=== PATIENT | male | born 1955 | race Caucasian/White ===

== ENCOUNTER 2018-07-17 02:53 | Outpatient (CLI) | payer MEDICAID, SELFPAY ==
[2018-07-17 13:14] LABS: BUN 16 mg/dL (7-18); CREATININE 1.52 mg/dL (0.70-1.30); Estimated GFR 46.86 (mL/min/1.73m2)
[2018-07-17] MEDS: Omnipaque 350 MG/ML 100 ML BTL IJ (13:51)
--- NOTE | 2018-07-17 14:03 | DI.RPTCT_ITS ---
SYMPTOMS/DIAGNOSIS: PHARYNX NEOPLASM, D49.[address]: CT examination of the cervical region was performed with a bolus infusion of 50 cc's of Omnipaque 350. Images obtained through the lung apices show emphysematous changes and no focal mass. No superior mediastinal adenopathy seen. There are scattered unremarkable appearing lymph nodes throughout the cervical region, the largest jugulodigastric node on the right measuring about 11 mm in diameter. No radhika masses identified. 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 The laryngeal structures are unremarkable. There is apparent chronic sinus disease predominantly involving ethmoid sinuses bilaterally with some mild mucoperiosteal thickening of the maxillary sinuses bilaterally as well. The mastoid air cells are clear and temporal bone structures appear intact. The visualized portions of the brain are unremarkable. CONCLUSION: No gross evidence of cervical adenopathy in a patient with reported pharyngeal neoplastic disease.
== END 2018-07-17 02:54 ==
PROVIDERS: PCP Family Medicine; Visit Provider Otolaryngology Otolaryngology/Facial Plastic Surgery
DX: D49.0 Neoplasm of unspecified behavior of digestive system (principal); R59.0 Localized enlarged lymph nodes
CPT/HCPCS: 70491; 84520; 82565; J3490

== ENCOUNTER 2018-11-09 08:52 | Outpatient (CLI) | payer MEDICAID, SELFPAY ==
[2018-11-09 11:14] LABS: Bilirubin Negative (Negative); Blood Trace-intact (Negative); Clarity Clear; Glucose Negative (Negative); Ketones Negative (Negative); Leukocyte Esterase Negative (Negative); Nitrite Negative (Negative); Urobilinogen 0.2 EU/dL (Up TO 0.2)
[2018-11-09 11:30] LABS: Bacteria Rare HPF (Negative); C & S Indicated? No; Casts Negative LPF (Negative); Crystals Negative HPF (Negative); Epithelial Cells Rare HPF (Negative); Mucus Negative (Negative); RBC 0-2 (0-2); WBC Negative HPF (0-5)
[2018-11-09 11:34] LABS: Anion Gap 13.9 mmol/L (3-11); BUN 31 mg/dL (7-18); CO2 23.1 mmol/L (21.0-32.0); CREATININE 1.67 mg/dL (0.70-1.30); Calcium 9.9 mg/dL (8.5-10.1); Chloride 102 mmol/L (98-107); Glucose 91 mg/dL (70-100); Potassium 4.9 mmol/L (3.5-5.1); Sodium 139 mmol/L (136-145)
== END 2018-11-09 09:12 ==
PROVIDERS: PCP Family Medicine; Visit Provider Family Medicine
DX: E87.5 Hyperkalemia (principal); R39.11 Hesitancy of micturition; I10 Essential (primary) hypertension
CPT/HCPCS: 36415; 80048; 81003; 81015

== ENCOUNTER 2019-05-04 10:09 | Outpatient (CLI) | payer MEDICAID, SELFPAY ==
[2019-05-04 13:13] LABS: ALT 23 U/L (12-78); AST 20 U/L (15-37); Alkaline Phosphatase 99 U/L (46-116); Anion Gap 11.5 mmol/L (3-11); BUN 18 mg/dL (7-18); Bilirubin, Total 0.3 mg/dL (0.2-1.0); CO2 24.5 mmol/L (21.0-32.0); CREATININE 1.46 mg/dL (0.70-1.30); Calcium 9.4 mg/dL (8.5-10.1); Chloride 102 mmol/L (98-107); Estimated GFR 48.92 (mL/min/1.73m2); Glucose 93 mg/dL (70-100); Potassium 4.9 mmol/L (3.5-5.1); Sodium 138 mmol/L (136-145); Total Protein 6.9 g/dL (6.4-8.2)
== END 2019-05-04 10:29 ==
PROVIDERS: PCP Family Medicine; Visit Provider Family Medicine
DX: R25.2 Cramp and spasm (principal); Z80.42 Family history of malignant neoplasm of prostate; Z12.5 Encounter for screening for malignant neoplasm of prostate
CPT/HCPCS: 36415; 80053; 84153; 83735

== ENCOUNTER 2019-09-16 09:35 | Outpatient (CLI) | payer MEDICAID, SELFPAY ==
--- NOTE | 2019-09-16 09:31 | DI.RAD_ITS ---
EXAM: XR KNEE LT 3V AP,LAT,EVELYN CLINICAL HISTORY: OA LEFT KNEE TECHNIQUE: The exam was performed according to the usual protocol. COMPARISON: LEFT KNEE 3 VIEW COMPLETE from 03/16/2014 FINDINGS: Three views were obtained. There is narrowing of the cartilaginous joint space of the lateral tibiof emoral joint which can be characterized as moderate to severe. Mild narrowing of medial tibiofemoral joint and patellofemoral joint also noted. Subchondral sclerosis and cyst formation noted at all 3 joints of the knee. Moderate hypertrophic marginal osteophyte formation noted as well. IMPRESSION: Severe DJD of the knee most marked involving lateral tibiofemoral joint.
== END 2019-09-16 09:55 ==
PROVIDERS: PCP Family Medicine; Visit Provider Student in an Organized Health Care Education/Training Program
DX: M25.562 Pain in left knee (principal); M17.12 Unilateral primary osteoarthritis, left knee
CPT/HCPCS: 73562

== ENCOUNTER 2020-05-19 09:14 | Outpatient (CLI) | payer MEDICAID, SELFPAY ==
[2020-05-19 23:32] LABS: COVID-19 RT-PCR UVMMC Result Negative (Negative)
== END 2020-05-19 09:34 ==
PROVIDERS: PCP Family Medicine; Visit Provider Family Medicine
DX: Z11.59 Encounter for screening for other viral diseases (principal)
CPT/HCPCS: U0003

== ENCOUNTER 2020-05-22 04:16 | Outpatient (CLI) | payer MEDICAID, SELFPAY ==
--- NOTE | 2020-05-29 08:37 | W.PFT ---
Date of service: 05/22/20 Time of Service: 08:04 Pulmonary Function Test Result Interpretation Spirometry: Spirometry shows mild obstructive airways disease, no significant bronchodilator response Lung Volumes: Not done Diffusion Capacity: Not done Airway Pressure: Not done Impression Mild obstructive airways disease with no bronchodilator response on spirometry. Clinical correlation recommended Clinical Correlation therefore is recommended.
== END 2020-05-22 04:36 ==
PROVIDERS: PCP Family Medicine; Visit Provider Family Medicine
DX: R06.02 Shortness of breath (principal); J44.9 Chronic obstructive pulmonary disease, unspecified
CPT/HCPCS: 94060

== ENCOUNTER 2020-05-30 00:50 | Outpatient (CLI) | payer MEDICAID, SELFPAY ==
[2020-05-30 07:55] LABS: HCT 51.1 % (40.0-50.0); Mean Corp. HGB Concentration 33.3 g/dL (32.0-36.0); Mean Corpuscular Hemoglobin 30.4 pg (27.0-33.0); Mean Corpuscular Volume 91.3 fL (80-95); Platelet Count 305 x1000/uL (130-400); RBC Distribution Width 13.6 % (11.8-14.1); White Blood Cell Count 10.36 k/cumm (4.4-10.8)
[2020-05-30 07:56] LABS: Bilirubin Negative (Negative); Blood Trace-intact (Negative); Clarity Clear (Clear); Glucose Negative (Negative); Ketones Negative (Negative); Leukocyte Esterase Negative (Negative); Nitrite Negative (Negative); Specific Gravity 1.025 (1.005-1.025); Urobilinogen 0.2 EU/dL (Up TO 0.2); pH 6.5 (5-8)
--- NOTE | 2020-05-30 07:56 | DI.RAD_ITS ---
EXAM: XR CHEST 2V PA LATERAL CLINICAL HISTORY: copd/sob, chronic obstructive pulmonary disease, J44.9, R06.02 TECHNIQUE: 2D digital imaging was performed. COMPARISON: No exams were available for comparison FINDINGS: MEDIASTINUM: Normal. HEART: Normal. PULMONARY VASCULATURE: Normal. LUNGS: There are patchy bilateral infiltrates in the upper lobes, right greater than left. There mil d underlying changes of COPD. PLEURAL SPACE: No pleural effusion or pneumothorax. BONE:Normal. IMPRESSION: Bilateral upper lobe infiltrate, right greater than left. DATA REPOSITORY: RADIATION DOSE DELIVERED:
[2020-05-30 08:22] LABS: Bacteria Rare HPF (Negative); C & S Indicated? No; Casts 0-2 Hyaline LPF (Negative); Crystals Negative HPF (Negative); Epithelial Cells Few HPF (Negative); Mucus Trace (Negative); WBC 0-2 HPF (0-5)
[2020-05-30 08:28] LABS: ALT 19 U/L (16-63); AST 19 U/L (15-37); Albumin 4.1 g/dL (3.4-5.0); Alkaline Phosphatase 107 U/L (46-116); Anion Gap 11.5 mmol/L (3-11); BUN 21 mg/dL (7-18); Bilirubin, Total 0.4 mg/dL (0.2-1.0); CO2 25.5 mmol/L (21.0-32.0); CREATININE 1.55 mg/dL (0.70-1.30); Calcium 9.4 mg/dL (8.5-10.1); Calculated LDL 105 mg/dL (<100); Chloride 103 mmol/L (98-107); Cholesterol 172 mg/dL (<200); Estimated GFR 45.51 (mL/min/1.73m2); Glucose 107 mg/dL (74-106); HDL Cholesterol 50 mg/dL (40-60); Potassium 5.1 mmol/L (3.5-5.1); Sodium 140 mmol/L (136-145); Total Protein 7.4 g/dL (6.4-8.2); Triglyceride 85 mg/dL (<150)
[2020-05-30 08:43] LABS: Uric Acid 6.4 mg/dL (3.5-7.2)
[2020-05-31 08:38] LABS: PSA, Screening 1.3 ng/mL (0.0-4.5)
== END 2020-05-30 01:10 ==
PROVIDERS: PCP Family Medicine; Visit Provider Family Medicine
DX: J44.9 Chronic obstructive pulmonary disease, unspecified (principal); R06.02 Shortness of breath; R91.8 Other nonspecific abnormal finding of lung field; E78.5 Hyperlipidemia, unspecified; N18.9 Chronic kidney disease, unspecified; R39.11 Hesitancy of micturition; Z12.5 Encounter for screening for malignant neoplasm of prostate; Z80.42 Family history of malignant neoplasm of prostate
CPT/HCPCS: 36415; 80053; 80061; 84153; 85027; 71046; 81003; 81015; 84550

== ENCOUNTER 2020-06-05 00:47 | Outpatient (CLI) | payer MEDICAID, SELFPAY ==
--- NOTE | 2020-06-05 08:15 | DI.CT_ITS ---
EXAM: CT CHEST W CLINICAL HISTORY: Bilateral upper lobe infiltrates R91.8 ABNORMAL FINDINGS, J44.9 COPD, TECHNIQUE: Imaging Protocol: Axial computed tomography images with coronal and sagittal reformatted images were created and reviewed CONTRAST MATERIAL: Intravenous: Omnipaque 350 Contrast volume:70 mL. COMPARISON: CR CHEST 2 VIEWS PA,LAT from 04/29/2018 CR XR CHEST 2V PA LATERAL from 05/30/2020 FINDINGS: Tracheobronchial tree: Patent where visualized. Mediastinum and Sanam: No dominant adenopathy or fluid collection. Pulmonary parenchyma: Moderately severe centrilobular emphysematous changes are present. Numerous no ncalcified pulmonary nodules are now seen scattered throughout the lungs. The largest measures appro ximately 1.1 cm in size. These were not present on the CT scan of the neck from 07/17/2018. No focal consolidating infiltrates are seen. Dependent atelectatic changes are seen in the lung bases. Pleura: No effusion or pneumothorax. Heart: The heart is not dilated. Mild coronary artery calcification is present. No significant peric ardial effusion. Aorta: Thoracic aorta non-dilated. Upper abdomen: Multiple bilateral renal cysts. Lymph nodes: Within normal limits. Bones: Degenerative changes are seen in the spine. No aggressive osseous lesions are identified. IMPRESSION: 1. Multiple pulmonary nodules. Primary diagnostic concern is for metastatic disease. An inflammator y infectious process cannot be excluded. 2. Moderately severe centrilobular emphysema. 3. Mild coronary artery disease. 4. Multiple bilateral renal cysts. RADIATION DOSE DELIVERED: Total DLP DATA REPOSITORY: All CT scans at this facility are submitted to the National Radiology Data Registry (NRDR) Dose Index Registry (DIR) with the [employer] (ACR). RADIATION OPTIMIZATION: All CT scans at this facility use at least one of these dose optimization te chniques: automated exposure control; mA and/or kV adjustment per patient size (includes targeted exa ms where dose is matched to clinical indication); or iterative reconstruction.
[2020-06-05] MEDS: Normal Saline - Diluent 50 ML VIAL IV (09:01)
[2020-06-05] MEDS: Omnipaque 350 MG/ML 100 ML BTL 70 ML IJ (09:02)
[2020-06-05] MEDS: Normal Saline Flush 10 ML SYR IVP (09:03)
== END 2020-06-05 01:07 ==
PROVIDERS: PCP Family Medicine; Visit Provider Family Medicine
DX: R91.8 Other nonspecific abnormal finding of lung field (principal); J43.8 Other emphysema; N28.1 Cyst of kidney, acquired; I25.10 Atherosclerotic heart disease of native coronary artery without angina pectoris
CPT/HCPCS: 71260; J3490

== ENCOUNTER 2020-06-27 00:25 | Outpatient (CLI) | payer MEDICAID, SELFPAY ==
--- NOTE | 2020-06-27 | DI.CT_ITS ---
EXAM: CT ABDOMEN PELVIS W CLINICAL HISTORY: PRIMARY LUNG NODULES,R91.8,METASTATIC MALIGNANCY SUSPECTED TECHNIQUE: COMPARISON: No exams were available for comparison FINDINGS: CT examination of the abdomen and pelvis was performed utilizing biphasic scanning following injectio n of 100 cc of Omnipaque 350. Images obtained through the lung bases show central lobular emphysema. No pleural effusion. The liver and spleen appear normal. The pancreas appears. No biliary dilatation. Gallbladder is CT normal. Adrenals appear normal bilaterally with no evidence of an adrenal mass. There are numerous bilateral low attenuation renal masses consistent with multiple renal cysts. Abdominal aorta is of normal diameter and no major abnormality of major visceral branches is seen. There is a small fat containing right inguinal hernia. There is a small fat containing umbilical her radha. No abdominal or pelvic adenopathy. Appendix is normal. No evidence of diverticulitis or bowel obstruction. IMPRESSION: Negative abdominal pelvic CT. No evidence intra-abdominal metastatic disease.
[2020-06-27] MEDS: Omnipaque 350 MG/ML 50 ML BTL PO (08:28)
[2020-06-27] MEDS: Normal Saline - Diluent 50 ML VIAL IV (10:25)
[2020-06-27] MEDS: Omnipaque 350 MG/ML 100 ML BTL IJ (10:25)
[2020-06-27] MEDS: Breeza Beverage 473 ML BTL PO (10:27)
== END 2020-06-27 00:45 ==
PROVIDERS: PCP Family Medicine; Visit Provider Student in an Organized Health Care Education/Training Program
DX: R91.8 Other nonspecific abnormal finding of lung field (principal); J43.9 Emphysema, unspecified; N28.89 Other specified disorders of kidney and ureter
CPT/HCPCS: 74177; J3490; Q9967

== ENCOUNTER 2021-03-08 09:18 | Inpatient (IN) | payer MEDICAID, SELFPAY ==
[2021-03-08] VITALS (12 sets, daily range): BP systolic 121–147; BP diastolic 76–91; PULSE 86–120; RESP 12–18; TEMP 36.6–37.4; O2SAT 90–96
--- NOTE | 2021-03-08 09:45 | DI.US_ITS ---
EXAM: US LOWER EXTREMITY VENOUS LT CLINICAL HISTORY: swelling and pain entire left leg TECHNIQUE: Grayscale, color, and doppler imaging of the deep venous system of the left lower extremi ty was performed. COMPARISON: No exams were available for comparison FINDINGS: This is an abnormal-positive study. There is extensive DVT extending from at least the common femoral vein down through the length of the ipsilateral femoral vein and into the calf veins including the peroneal veins and visualized proxima l anterior tibial veins. The visualized posterior tibial veins appear patent. There is also thrombus within the proximal and mid portions of the ipsilateral greater saphenous vein . IMPRESSION: 1. Positive study with extensive DVT in the left lower extremity, as described above.. There is als o extensive thrombosis in the ipsilateral greater saphenous vein. DATA REPOSITORY:
--- NOTE | 2021-03-08 09:45 | RT.EKG_ITS ---
APPROVED REPORT Exam: Resting ECG Patient Location: E HR:89 bpm ECG Measurements Heart Rate 89 AXIS CO 133 P 68 QRSd 111 QRS 67 QT 363 T -11 QTc 443 Conclusion Sinus rhythm.. Repol abnrm inferior leads...ST dep, T neg, II III aVF are similar to previous 03/01/14
--- NOTE | 2021-03-08 09:55 | W.ED.GENAD ---
Discharge Plan Discharge Details Chief Complaint: Cellulitis Admit Date/Time: 03/08/21 12:20 Admit Provider: Bere Beltre Attending Provider: Bere Beltre Primary Care Provider: Kalen Morrissey ED Provider: Shelby Valentino Discharge Data Discharge Date/Time-TO BE ENTERED AT DEPARTURE: 03/08/21 13:31 Medical Decision Making States she shows common femoral DVT, ultrasound done today of DVT throughout femoral and saphenous vein Recommendation for admission for Lovenox administration CT chest does not show pulmonary embolism per radiology interpretation but does show evidence of a infiltrate, given patient, I did initiate ceftriaxone and cyclin Patient is afebrile, he is in no acute respiratory distress There is no evidence of abdominal pathology on CT scan which is reassuring Patient will be admitted by the hospitalist service at this time Covid swab pending Case discussed with Dr. Beltre, she is willing to admit the patient EKG does not show acute pathology when compared to prior Differential Diagnosis Differential Diagnosis: DVT, pulmonary embolism, angina, cellulitis Medical Records Medical records reviewed: Yes I reviewed the patient's medical records. Lab Data Lab results reviewed: Yes I reviewed the patient's lab results. ECG Data Prior ECG tracings: available for review HPI 65-year-old male presents with report of left leg swelling which started 3 days prior to arrival. Patient denies any chest pain or shortness of breath. He denies fever or chills. He states the leg is painful. He denies prior history of similar symptoms in the past. He denies exacerbating or alleviating factors. Has a possible history of cancer which he has elected not work-up at this point. He was told he potentially had lung cancer. He denies any nausea or vomiting but has had left lower quadrant cramping which is intermittent in nature. Patient states lately when he bends over or positions manner that applies pressure to the area. He denies any urinary complaints. He denies any diarrhea. He denies any chest pain or shortness of breath at this time General Date/Time Provider Initiated Documentation: 03/08/21 09:18. Related Data Home Medications Medication Instructions Recorded Confirmed acetaminophen [Tylenol Extra 500 mg PO TID PRN 03/28/14 03/08/21 Strength] garlic 500 mg PO BID 05/13/14 04/15/21 lisinopril 20 1 tab PO DAILY #90 tab 11/09/18 03/08/21 mg-hydrochlorothiazide 12.5 mg tablet budesonide-formoterol HFA 160 2 puff INHALATION BID 30 Days #1 08/31/20 03/08/21 mcg-4.5 mcg/actuation aerosol inhaler inhaler albuterol sulfate 90 mcg/actuation 1 - 2 puff INHALATION Q4H PRN 30 11/12/20 03/08/21 aerosol inhaler Days #2 inhaler Previous Rx's Medication Instructions Recorded lisinopril 20 1 tab PO DAILY #90 tab 11/09/18 mg-hydrochlorothiazide 12.5 mg tablet budesonide-formoterol HFA 160 2 puff INHALATION BID 30 Days #1 08/31/20 mcg-4.5 mcg/actuation aerosol inhaler inhaler albuterol sulfate 90 mcg/actuation 1 - 2 puff INHALATION Q4H PRN 30 11/12/20 aerosol inhaler Days #2 inhaler Allergies Allergy/AdvReac Type Severity Reaction Status Date / Time meloxicam Allergy Intermediate Skin Rash Unverified 03/08/21 09:27 oxycodone AdvReac Severe Contraindic Unverified 03/08/21 09:27 ated General Stated Complaint: Cellulitis IRMA: 3 Review of Systems Narrative: Review of systems obtained times 7 aside from where indicated in HPi COUNTS INCLUDE 234 BEDS AT THE [facility] Surgical History Cystoscopy 10/12/14 Hand surgery 04/2014 Replacement of total knee joint 04/10/17 RIGHT KNEE Family History (Updated 05/16/20 @ 11:05 by Magdi Saunders) Mother , 67 Diabetes Heart disease Myocardial infarction Parkinson disease Father , 89 Heart disease Myocardial infarction x 2 OA (osteoarthritis) Dialysis patient Son No problems noted. Family History Essential hypertension Heart disease Hyperlipidemia Mental disorder Sister No problems noted. Sister No problems noted. Sister No problems noted. Sister No problems noted. Brother , 63 No problems noted. Brother No problems noted. Son No problems noted. Social History (Updated 05/16/20 @ 11:04 by Magdi Saunders) Smoking/Tobacco Use Status: Current every day Tobacco Type: cigarettes Quit status: considering quitting Smoking risk assessment performed?: Yes Alcohol Intake: current Alcohol Intake frequency: 0-2 drinks per day Alcohol type: beer Drug use: Socially Substance use type: marijuana Caregiver/Support person: No Household members: none Housing: other Details: [place]per Do you need help understanding health information?: Rarely Pets and animals: No Sexually active: Yes Do you think of yourself as: straight/heterosexual Current gender identity: male What is your relationship status?: How often do you talk on the phone with friends or family?: decline to answer How often do you get together with friends or relatives?: decline to answer How often do you attend mosque or holiness services?: decline to answer Do you belong to any clubs or organized social groups?: decline to answer Panel score (0-1 are the most socially isolated patients): 0 What type of physical activity do you participate in: decline to answer Duration: 30-45 minutes/day Frequency: decline to answer Mehnaz/Latter Day: Confucianist Special mehnaz needs: No Seatbelt use: always Drive 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 Do you feel safe at home: Yes Do you feel safe in your relationship?: Yes Exam Const General: cooperative and comfortable HENMT Head: normal to inspection Eyes Pupils: PERRL Chest Chest: normal inspection of the chest Resp Effort & Inspection: normal respiratory effort Auscultation: clear to auscultation bilaterally Cardio Rate: tachycardic GI Other: Left lower quadrant tenderness, no rebound or guarding, no CVA tenderness Neuro General: patient alert and patient oriented x3 Extrem Other: Left lower extremity with significant swelling, distal pulses intact, sensation intact Course Vital Signs Vital signs: Vital Signs Temperature 36.6 C 03/08/21 09:21 Pulse 120 H 03/08/21 09:21 Blood Pressure 142/76 H 03/08/21 09:21 Pulse Oximetry 96 03/08/21 09:21 Temperature 36.6 C 03/08/21 09:21 Temperature Source Temporal Artery Scan 03/08/21 09:21 Pulse 120 H 03/08/21 09:21 Respiratory Effort Non-Labored 03/08/21 09:26 Blood Pressure 142/76 H 03/08/21 09:21 Blood Pressure Position Sitting 03/08/21 09:21 Pulse Oximetry 96 03/08/21 09:21 Oxygen Delivery Method Room Air 03/08/21 09:21 Oxygen Flow Rate 0 03/08/21 09:21 Pain Level 2 03/08/21 09:21
[2021-03-08 09:56] LABS: Abs Immature Grans 0.08 10^3/uL (0.0-0.06); Absolute Basophil Count 0.12 10^3/uL (0.0-0.2); Absolute Eosinophil Count 0.45 10^3/uL (0.0-0.7); Absolute Lymphocyte Count 3.12 10^3/uL (1.2-3.4); Absolute Monocyte Count 1.22 10^3/uL (0.1-0.8); Basophils % 0.8; Eosinophils % 2.9; HCT 53.5 % (40.0-50.0); HGB 17.8 g/dL (13.5-17.5); Immature Grans % 0.5; MCH 30.3 pg (27.0-33.0); MCHC 33.3 % (32.0-36.0); MPV 10.5 fL (8.0-11.0); Monocytes % 7.8; Nucleated RBC 0 %; Platelet Count 208 10^3/uL (130-400); RBC 5.88 10^6/uL (4.36-5.78); RDW 12.8 % (11.8-14.1); RDW-SD 43.1 fL; WBC 15.59 10^3/uL (4.4-10.8)
[2021-03-08 10:12] LABS: ALT 31 U/L (16-63); AST 22 U/L (15-37); Albumin 4.4 g/dL (3.4-5.0); Alkaline Phosphatase 104 U/L (46-116); Anion Gap 13.3 mmol/L (3-11); BUN 28 mg/dL (7-18); Bilirubin, Total 0.8 mg/dL (0.2-1.0); CO2 22.7 mmol/L (21.0-32.0); CREATININE 1.9 mg/dL (0.70-1.30); Calcium 9.6 mg/dL (8.5-10.1); Chloride 101 mmol/L (98-107); Estimated GFR 35.87 (mL/min/1.73m2); Glucose 110 mg/dL (74-106); Potassium 4.8 mmol/L (3.5-5.1); Sodium 137 mmol/L (136-145); Total Protein 8.8 g/dL (6.4-8.2); Troponin I < 0.05 ng/mL (<0.06)
[2021-03-08 10:40] LABS: INR 1.1 (0.9-1.1); PTT Activated 24.7 sec (21.0-27.5); Prothrombin Time 10.7 sec (9.3-11.0)
[2021-03-08] MEDS: Normal Saline - Diluent 50 ML VIAL IV (10:48)
[2021-03-08 10:50] LABS: NT-proBNP 148 pg/mL (<300)
--- NOTE | 2021-03-08 10:52 | DI.CT_ITS ---
EXAM: CT CHEST PE ABD PELVIS W CLINICAL HISTORY: large leg dvt, with tachycardia and tachypnea. TECHNIQUE: Imaging Protocol: Axial CT angiography was performed with multi-slice acquisition and m ulti-planar and/or 3D reconstructions. CONTRAST MATERIAL: Intravenous: Omnipaque 350 Contrast volume:100 ml Oral: None COMPARISON: CT CT ABDOMEN PELVIS W from 06/27/2020 FINDINGS: CHEST: PULMONARY ARTERIES: There are no intra-arterial filling defects to suggest the presence of acute pulm onary emboli. LUNGS: There is no evidence of pulmonary infarction.There are emphysematous changes bilaterally. Mil d subpleural infiltrate is noted in the posterior basal segment of the left lower lobe. No prominent nodules. There are no pleural effusions. MEDIASTINUM: There is no hilar nor mediastinal adenopathy. Visualized thyroid unremarkable. CARDIAC: Heart size is normal. There is no pericardial effusion. There is no significant shift of t he interventricular septum.Caliber thoracic aorta is normal. No evidence of aortic dissection. OSSEOUS: No significant osseous lesions.. ABDOMEN: There is no ascites. LIVER: There are no focal hepatic lesions nor dilatation of intrahepatic ducts. GALLBLADDER/BILIARY: No obvious gallbladder pathology. CBD is not dilated. PANCREAS: No evidence of pancreatic mass nor dilatation of the pancreatic duct. SPLEEN: Spleen is not enlarged. There are no intrasplenic lesions. Splenic and portal veins are alamo nt. ADRENALS: There are no significant adrenal masses. KIDNEYS:Multiple cysts in both kidneys. Largest cyst is in the right kidney and measures 3.5 by 0.9 cm. No calculi nor hydronephrosis. No solid renal masses. ABDOMINAL AORTA: Abdominal aorta is not enlarged. LYMPH NODES: There is no retroperitoneal or para-aortic adenopathy. ABDOMINAL WALL/GI: No evidence of significant anterior abdominal wall hernia. No bowel obstruction. PELVIS: There appears to be intraluminal thrombus in the left common femoral vein with intraluminal f illing defect and surrounding streaking. Similar findings not seen on the opposite-right side. LYMPH NODES: There is no intrapelvic nor inguinal adenopathy. GI: No evidence of appendicitis.Extensive sigmoid diverticulosis but no obvious acute diverticulitis. URINARY BLADDER: No calculi nor masses evident REPRODUCTIVE: Age-appropriate OSSEOUS: No significant osseous lesions. IMPRESSION: 1. No evidence of acute pulmonary emboli nor pulmonary infarction. 2. Some mild infiltrate is noted in the left lung base. This requires follow-up. No pleural effusio n 3. There is intraluminal filling defect consistent with DVT in the left lower extremity veins describ ed above including the left common femoral vein. 4. Multiple benign renal cysts. No solid renal masses. 5. Extensive sigmoid diverticulosis. No obvious acute diverticulitis. No appendicitis. Sigmoid RADIATION DOSE DELIVERED: 1,379.96mGy.cm Total DLP DATA REPOSITORY: All CT scans at this facility are submitted to the National Radiology Data Registry (NRDR) Dose Index Registry (DIR) with the [employer] (ACR). RADIATION OPTIMIZATION: All CT scans at this facility use at least one of these dose optimization te chniques: automated exposure control; mA and/or kV adjustment per patient size (includes targeted exa ms where dose is matched to clinical indication); or iterative reconstruction.
[2021-03-08] MEDS: Doxycycline Hyclate 100 MG CAP PO (12:07)
[2021-03-08] MEDS: cefTRIAXone 1 GM/50 ML BAG IVPB (12:08)
[2021-03-08] MEDS: Enoxaparin 80 MG/0.8 ML SYR SC (12:45)
[2021-03-08 14:12] LABS: COVID-19 PCR Negative (Negative)
[2021-03-08 16:03] LABS: Troponin I < 0.05 ng/mL (<0.06)
[2021-03-08 16:50] LABS: Procalcitonin 0.1 ng/mL
--- NOTE | 2021-03-08 17:12 | W.PM.HP.N ---
Date of service: 03/08/21 Time of Service: 17:12 Assessment and Plan Assessment and plan (1) Left leg DVT: Status: Acute Assessment and plan: admitted to med/surg placed on lovenox CTA negative echo pending (2) CKD (chronic kidney disease): Status: Acute Assessment and plan: slightly above baseline avoid nephrotoxic drugs and monitor (3) COPD (chronic obstructive pulmonary disease): Status: Chronic Assessment and plan: stable, continue to monitor continue symbicort (4) Essential hypertension: Status: Acute Assessment and plan: continue home meds and monitor discussed with Dr Beltre History of Present Illness History of Present Illness Chief Complaint: left lower extremity pain and swelling Narrative: sudden onset 3 days ago of left lower extremity pain and swelling. work up in ED shows extensive DVT, no previous history. stopped smoking in nov. no respiratory symptoms. CTA negative for PE, covid testing negative as well. he was placed on lovenox and will be referred to observation. echo pending for tomorrow. no fevers chills or recent illness. creatinine above his baseline of 1.5 at 1.9 Review of Systems All systems reviewed & are unremarkable except as noted in HPI and below Musculoskeletal Musculoskeletal: Reports other (left leg swelling and pain, no trauma) [facility] Surgical History Cystoscopy 10/12/14 Hand surgery 04/2014 Replacement of total knee joint 04/10/17 RIGHT KNEE Family History (Updated 05/16/20 @ 11:05 by Magdi Saunders) Mother , 67 Diabetes Heart disease Myocardial infarction Parkinson disease Father , 89 Heart disease Myocardial infarction x 2 OA (osteoarthritis) Dialysis patient Son No problems noted. Family History Essential hypertension Heart disease Hyperlipidemia Mental disorder Sister No problems noted. Sister No problems noted. Sister No problems noted. Sister No problems noted. Brother , 63 No problems noted. Brother No problems noted. Son No problems noted. Social History (Updated 05/16/20 @ 11:04 by Magdi Saunders) Smoking/Tobacco Use Status: Current every day Tobacco Type: cigarettes Quit status: considering quitting Smoking risk assessment performed?: Yes Alcohol Intake: current Alcohol Intake frequency: 0-2 drinks per day Alcohol type: beer Drug use: Socially Substance use type: marijuana Caregiver/Support person: No Household members: none Housing: other Details: Camper Do you need help understanding health information?: Rarely Pets and animals: No Sexually active: Yes Do you think of yourself as: straight/heterosexual Current gender identity: male What is your relationship status?: How often do you talk on the phone with friends or family?: decline to answer How often do you get together with friends or relatives?: decline to answer How often do you attend zoroastrianism or nondenominational services?: decline to answer Do you belong to any clubs or organized social groups?: decline to answer Panel score (0-1 are the most socially isolated patients): 0 What type of physical activity do you participate in: decline to answer Duration: 30-45 minutes/day Frequency: decline to answer Mehnaz/Baptist: Taoist Special mehnaz needs: No Seatbelt use: always Drive intox or ride w/intox 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: No Do you feel safe at home: Yes Do you feel safe in your relationship?: Yes Meds Allergies and Home Medications Allergies Allergy/AdvReac Type Severity Reaction Status Date / Time meloxicam Allergy Intermediate Skin Rash Unverified 03/08/21 09:27 oxycodone AdvReac Severe Contraindic Unverified 03/08/21 09:27 ated Home Medications Medication Instructions Recorded Confirmed Type acetaminophen [Tylenol Extra 500 mg PO TID PRN 03/28/14 03/08/21 History Strength] garlic 500 mg PO BID 04/05/14 03/08/21 History lisinopril 20 1 tab PO DAILY #90 tab 11/09/18 03/08/21 Rx mg-hydrochlorothiazide 12.5 mg tablet budesonide-formoterol HFA 160 2 puff INHALATION BID 30 Days #1 08/31/20 03/08/21 Rx mcg-4.5 mcg/actuation aerosol inhaler inhaler albuterol sulfate 90 mcg/actuation 1 - 2 puff INHALATION Q4H PRN 30 11/12/20 03/08/21 Rx aerosol inhaler Days #2 inhaler Exam Const General: cooperative and ill appearing (older than stated age) chronically Nutritional Appearance: average body habitus Orientation: alert, awake and oriented x3 HENMT Head: normal to inspection, normocephalic and atraumatic Mouth: oral mucosae normal Resp Effort & Inspection: normal respiratory effort Auscultation: clear to auscultation bilaterally Cardio Rate: regular rate Rhythm: regular rhythm Heart Sounds: no murmurs GI Inspection: normal to inspection Palpation: soft Auscultation: normal bowel sounds Skin General skin exam: no rashes or lesions noted Extrem Left lower extremity: edema and lower leg Results Labs Result diagrams: 03/08/21 09:42 03/08/21 09:42 Labs: Laboratory Results - last 24 hr 03/08/21 03/08/21 03/08/21 09:42 09:42 09:42 WBC 15.59 H RBC 5.88 H Hgb 17.8 H Hct 53.5 H MCV 91.0 MCH 30.3 MCHC 33.3 RDW 12.8 Plt Count 208 MPV 10.5 Immature Gran % 0.5 Neutrophils % 68.0 Lymphocytes % 20.0 Monocytes % 7.8 Eosinophils % 2.9 Basophils % 0.8 Nucleated RBC % 0 Absolute Neutrophils 10.60 H Absolute Lymphocytes 3.12 Absolute Monocytes 1.22 H Absolute Eosinophils 0.45 Absolute Basophils 0.12 PT INR APTT Sodium 137 Potassium 4.8 Chloride 101 Carbon Dioxide 22.7 Anion Gap 13.3 H BUN 28 H Creatinine 1.9 H Estimated GFR/1.73 m2 35.87 Glucose 110 H Calcium 9.6 Total Bilirubin 0.8 AST 22 ALT 31 Alkaline Phosphatase 104 Troponin I < 0.05 NT-Pro-B Natriuret Pep 148 Total Protein 8.8 H Albumin 4.4 Procalcitonin COVID-19 Source SARS-CoV-2 (PCR) 03/08/21 03/08/21 03/08/21 09:42 12:08 15:28 WBC RBC Hgb Hct MCV MCH MCHC RDW Plt Count MPV Immature Gran % Neutrophils % Lymphocytes % Monocytes % Eosinophils % Basophils % Nucleated RBC % Absolute Neutrophils Absolute Lymphocytes Absolute Monocytes Absolute Eosinophils Absolute Basophils PT 10.7 INR 1.1 APTT 24.7 Sodium Potassium Chloride Carbon Dioxide Anion Gap BUN Creatinine Estimated GFR/1.73 m2 Glucose Calcium Total Bilirubin AST ALT Alkaline Phosphatase Troponin I < 0.05 NT-Pro-B Natriuret Pep Total Protein Albumin Procalcitonin COVID-19 Source Nasopharyx SARS-CoV-2 (PCR) Negative 03/08/21 15:28 WBC RBC Hgb Hct MCV MCH MCHC RDW Plt Count MPV Immature Gran % Neutrophils % Lymphocytes % Monocytes % Eosinophils % Basophils % Nucleated RBC % Absolute Neutrophils Absolute Lymphocytes Absolute Monocytes Absolute Eosinophils Absolute Basophils PT INR APTT Sodium Potassium Chloride Carbon Dioxide Anion Gap BUN Creatinine Estimated GFR/1.73 m2 Glucose Calcium Total Bilirubin AST ALT Alkaline Phosphatase Troponin I NT-Pro-B Natriuret Pep Total Protein Albumin Procalcitonin 0.1 COVID-19 Source SARS-CoV-2 (PCR) Last Vital Signs Temp 37.2 C 03/08/21 16:23 Pulse 94 H 03/08/21 16:23 Resp 18 03/08/21 16:23 BP 147/91 H 03/08/21 16:23 Pulse Ox 94 03/08/21 16:23 COVID-19 Screening Have you, or household traveled for leisure in last 14 days?: No Had IN PERSON contact w/suspected or confirmed C-19 person: No
[2021-03-08] MEDS: Normal Saline Flush 10 ML SYR IVP (19:56)
[2021-03-08] MEDS: Budesonide/Formoterol 160/4.5 6 GM 60 PUFF INH IH (19:56)
[2021-03-08] MEDS: Enoxaparin 100 MG/ML SYR 90 MG SC (23:59)
[2021-03-09] VITALS (7 sets, daily range): BP systolic 110–133; BP diastolic 73–86; PULSE 74–89; RESP 17–18; TEMP 36.9–37.7; O2SAT 91–95
[2021-03-09] MEDS: Acetaminophen 325 MG TAB 650 MG PO (03:40)
[2021-03-09 07:23] LABS: Abs Immature Grans 0.05 10^3/uL (0.0-0.06); Absolute Basophil Count 0.08 10^3/uL (0.0-0.2); Absolute Eosinophil Count 0.57 10^3/uL (0.0-0.7); Absolute Monocyte Count 0.92 10^3/uL (0.1-0.8); Basophils % 0.8; Eosinophils % 5.8; HCT 51.6 % (40.0-50.0); HGB 17.2 g/dL (13.5-17.5); Immature Grans % 0.5; Lymphocytes % 22.5; MCH 30.2 pg (27.0-33.0); MCHC 33.3 % (32.0-36.0); MCV 90.5 fL (80-95); MPV 10.1 fL (8.0-11.0); Monocytes % 9.4; Nucleated RBC 0 %; Platelet Count 187 10^3/uL (130-400); RDW-SD 43.3 fL; WBC 9.76 10^3/uL (4.4-10.8)
[2021-03-09 07:27] LABS: Absolute Neutrophil Count 5.95 10^3/uL (1.2-6.7)
[2021-03-09 07:33] LABS: INR 1.1 (0.9-1.1); Prothrombin Time 10.7 sec (9.3-11.0)
[2021-03-09 08:03] LABS: Anion Gap 12.1 mmol/L (3-11); BUN 28 mg/dL (7-18); CO2 21.9 mmol/L (21.0-32.0); CREATININE 1.7 mg/dL (0.70-1.30); Calcium 8.9 mg/dL (8.5-10.1); Chloride 103 mmol/L (98-107); Estimated GFR 40.78 (mL/min/1.73m2); Ferritin 217 ng/mL (26-388); Glucose 95 mg/dL (74-106); Magnesium 2.2 mg/dL (1.8-2.4); Potassium 4.3 mmol/L (3.5-5.1); Sodium 137 mmol/L (136-145); Vitamin B12 663 pg/mL (193-986)
[2021-03-09 08:04] LABS: Folate > 20.0 ng/mL (8.6-20.0)
[2021-03-09 08:11] LABS: C-Reactive Protein 7.34 mg/dL (0.0-0.3)
[2021-03-09] MEDS: hydroCHLOROthiazide 12.5 MG TAB PO (08:14)
[2021-03-09] MEDS: Lisinopril 20 MG TAB PO (08:14)
[2021-03-09 08:23] LABS: Iron 60 ug/dL (65-175); Total Iron Binding Capacity 237 ug/dL (250-450); Transferrin Sat 25 % (20-55)
[2021-03-09] MEDS: Budesonide/Formoterol 160/4.5 6 GM 60 PUFF INH IH (08:23)
--- NOTE | 2021-03-09 10:05 | PDOC.CMIN ---
- If Service Date Differs Date of service: 03/09/21 Time of Service: 10:05 Care Management Initial Assess REASON FOR HOSPITALIZATION:: L Leg DVT PAST MEDICAL HISTORY/PAST SURGICAL HISTORY:: All systems reviewed & are unremarkable except as noted in HPI and below. Musculoskeletal. Musculoskeletal: Reports other (left leg swelling and pain, no trauma). PFSH. Surgical History . Cystoscopy. 10/12/14. Hand surgery. 04/2014. Replacement of total knee joint. 04/10/17. RIGHT KNEE PREVIOUS FUNCTIONAL STATUS/SOCIAL/FAMILY SUPPORTS:: Jose Luis lives in [place], [place] in a camper on his 's property. His , from whom he is , lives in the house on the property with their son and their son's daughter. Jose Luis is not currently employed. He collects social security but is not disabled. Jose uLis shared that he has issues with his legs which made it difficult to work. 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 He receives no services. CURRENT FUNCTIONAL STATUS:: Jose Luis was just returning from having an Echocardiogram when CM met with him. He was pleasant and engaged readily with CM. He stated that he hopes to be discharged later today. His provider has requested that Care Management follow up with his pharmacy regarding pricing of Eliquis. CM contacted [facility] in [place] and determined that Jose Luis's copay with be $3.00. ADVANCE DIRECTIVES:: None on file Has patient been provided with info about the portal/API?: Yes Did the patient sign up for the portal?: No CODE STATUS:: Full Code INSURANCE COVERAGE / FINANCIAL ISSUES:: Medicaid CURRENT HOME/COMMUNITY SERVICES/EQUIPMENT:: none PRIMARY CARE PHYSICIAN:: Kalen Caba POTENTIAL DISCHARGE NEEDS:: Follow up with PCP and sicharge plan of care PATIENT/FAMILY EDUCATION NEEDS:: Review of discharge and follow up instructions including medications, activities and appointments. Discussion od [facility] TRANSPORTATION:: via private vehicle with friends/family PLAN:: Jose Luis will be discharged home with no new services. He will follow up with his community providers and transport with family. .
[2021-03-09] MEDS: Furosemide 40 MG TAB PO (10:29)
--- NOTE | 2021-03-09 10:37 | DI.US_ITS ---
APPROVED REPORT EXAM: Comprehensive 2D, Doppler, and color-flow Echocardiogram Patient Location: In-Patient Electrical Lineworker: Sona Lea RDCS (AE) Indications: DVT, Tachycardia, COPD Other Information Study Quality: Adequate Conclusion Normal left ventricular wall thickness and chamber size. Estimated ejection fraction is 55 to 60%. There are no segmental wall motion abnormalities Normal right ventricular size and systolic function Both atria are normal in size There is no significant valvular disease Mildly dilated ascending aorta measuring 3.56 cm Wall motion Left Ventricle The left ventricle is normal size. The left ventricular systolic function is normal. The left ventric ular ejection fraction is within the normal range. There is normal left ventricular wall thickness. T here is normal LV segmental wall motion. There is no ventricular septal defect visualized. LVEF is 55 -60%. Right Ventricle The right ventricle is normal size. The right ventricular systolic function is normal. Atria The left atrium size is normal. The right atrium size is normal. The interatrial septum is intact wit h no evidence for an atrial septal defect. Aortic Valve The aortic valve is normal in structure. Aortic valve is trileaflet. There is no aortic valvular sten osis. No aortic regurgitation is present. Mitral Valve Mild mitral annular calcification. No evidence of mitral valve stenosis. Trace mitral regurgitation. Tricuspid Valve The tricuspid valve is normal in structure. There is no tricuspid valve stenosis. Trace tricuspid reg urgitation. Unable to assess PA pressure. Pulmonic Valve The pulmonary valve is normal in structure. There is no pulmonic valvular stenosis. Trace pulmonic re gurgitation. Great Vessels The aortic root is normal in size. The ascending aorta is mildly dilated. Aortic arch is not well vis ualized. IVC is normal in size and collapses >50% with inspiration. Pericardium There is no pericardial effusion. 2D Dimensions IVSD d PLAX 1.14 cm M: 0.6-1.2 LV Vol A2C d MOD 94.4 mL LVPW d PLAX 1.13 cm M: 0.6 - 1.2 LV Vol A4C d MOD 92.1 mL LVID d PLAX 4.64 cm M: 4.2 - 5.8 LA vol/ BSA A2C s A-L 15.3 mL/m2 LVDs 3.20 cm M: 2.5 - 4.0 LA vol/ BSA A4C s A-L 16.2 mL/m2 Ao Root d 2.92 cm M: 3.1 - 3.7 LA Vol/ BSA Biplane s A-L 16.9 mL/m2 RA Area A4C 11.03 cm2 LA Area A4C s MOD 13.77 cm2 RA Vol/ BSA A4C s A-L 11.5 mL/m2 LA Area A2C s MOD 12.47 cm2 Ao Asc Diam d 3.56 cm M: 2.6 - 3.4 LV EF A4C MOD 53.1 % LV EF Teichholz 58.3 % LV EF A2C MOD 55.2 % LVEF (Jaeger's) 51.90 % M: 52 - 72 LV EF Biplane MOD 51.9 % LV Volume 70.60 mL M: 62 - 150 SV 49.54 mL LV Volume Index 33.94 mL/m2 M: 34 - 74 SV Index 23.73 mL/m2 LV Vol Biplane MOD 95.5 mL FS 30.70 % M-Mode TAPSE 2.14 cm (M/F) >1.7 LV Diastology E/A Ratio 0.6 MV E Vmax 0.41 (0.4-1.3 m/s) MV A Vmax 0.65 (0.4-1.3 m/s) MV E/A Ratio 0.59 Aortic Valve LVOT Area 3.44 cm2 AoV Area Vmax 2.81 cm2 LVOT Vmax 0.99 m/s AoV Area/ BSA (Vmax) 1.35 cm2/m2 LVOT Mean Darrius. 0.70 m/s MAN Mean Darrius. 2.69 cm2 LVOT Peak Grad 4.0 mmHg MAN Mean Darrius. Index 1.29 cm2/m2 LVOT Mean Grad 2.4 mmHg LVOT VTI 0.162 m LVOT Diam s 2.05 cm AoV Vmax 1.22 m/s Velocity Ratio 0.81 AoV Mean Darrius. 0.89 m/s AoV Peak Grad 5.9 mmHg LVOT SV 55.78 mL AoV Mean Grad 3.5 mmHg AoV VTI 0.168 m AoV Area VTI 3.31 cm2 AoV Area/ BSA (VTI) 1.59 cm/m2 Mitral Valve MV DT 344 (160-240 msec) MV PHT 100 msec MV Area PHT 2.21 cm2 Pulmonary Valve PV Vmax 1.35 (0.5-1.5 m/s) RVOT Peak Gr. 2.51 mmHg PV Peak Grad 7.3 mmHg RVOT Mean Gr. 1.15 mmHg PV Mean Grad 3.9 mmHg RVOT VTI 0.112 m PV VTI 0.172 m RVOT Vmax 0.79 m/s
[2021-03-09] MEDS: Enoxaparin 100 MG/ML SYR 90 MG SC (11:30)
--- NOTE | 2021-03-09 12:13 | W.PM.DS.N ---
Date of service: 03/09/21 Time of Service: 12:14 DS: Diagnosis Discharge Diagnosis (1) Left leg DVT: Start date: 03/09/21 Start time: 12:14 Status: Acute Asessment and Plan: Positive study with extensive DVT in the left lower extremity, as described above.. There is also extensive thrombosis in the ipsilateral greater saphenous vein. Initiated on Enoxaparin however he is being transitioned to apixaban CTA negative for PE Follow up with PCP in 1 week Echo conclusion: Conclusion Normal left ventricular wall thickness and chamber size. Estimated ejection fraction is 55 to 60%. There are no segmental wall motion abnormalities Normal right ventricular size and systolic function Both atria are normal in size There is no significant valvular disease Mildly dilated ascending aorta measuring 3.56 cm (2) CKD (chronic kidney disease): Start date: 03/09/21 Start time: 12:46 Status: Chronic Asessment and Plan: At baseline, resume all home medications above case discussed with Dr. Beltre Discharge Plan Disposition Patient Disposition: HOME Condition: Stable Discharge Details Reason For Visit: ACUTE DVT LLE, FRANCISCO Admit Date/Time: 03/08/21 12:20 Admit Provider: Bere Beltre Attending Provider: Bere Beltre [facility] Course: 65 y.o male with PMH of CKD, HTN, OA, BPH, presented to [facility] ED with sudden onset of left lower extremity pain and swelling 3 days prior to admission. Work up in ED revealed extensive DVT, no previous history. Creatinine above baseline at 1.9. Stopped smoking in Nov. He denies SOB, CP. CTA negative for PE, Covid testing negative as well. He was placed on lovenox and referred to observation. Echo: Conclusion Normal left ventricular wall thickness and chamber size. Estimated ejection fraction is 55 to 60%. There are no segmental wall motion abnormalities Normal right ventricular size and systolic function Both atria are normal in size There is no significant valvular disease Mildly dilated ascending aorta measuring 3.56 cm Today he denies CP, SOB, N/V/D. He is being transitioned to apixaban. He feels well. Creatinine is at baseline. He is being discharged home, follow up next week with PCP. Home Meds and New Rx's Prescriptions: New apixaban 5 mg tablet 5 mg PO BID Qty: 60 RF: 0 furosemide 40 mg Tablet 40 mg PO DAILY Qty: 20 RF: 0 omeprazole 20 mg capsule,delayed release(DR/EC) 20 mg PO DAILY Qty: 30 RF: 0 Continued lisinopril-hydrochlorothiazide 20-12.5 mg tablet 1 tab PO DAILY Qty: 90 RF: 3 budesonide-formoterol [Symbicort] 160-4.5 mcg/actuation HFA aerosol inhaler 2 puff Inhalation BID 30 Days Qty: 1 RF: 11 albuterol sulfate [ProAir HFA] 90 mcg/actuation HFA aerosol inhaler 1 - 2 puff Inhalation Q4H PRN 30 Days Qty: 2 RF: 11 acetaminophen [Tylenol Extra Strength] 500 MG tablet 500 mg PO TID PRNRF: 0 garlic 500 MG tablet 500 mg PO BID RF: 0 Discharge Instructions Instructions: Apixaban (By mouth), Deep Vein Thrombosis (DC), Leg Edema (ED) Additional Instructions: Take 10 mg apixaban twice a day (14 doses) X 7 days. You will start your first dose tonight. After 14 doses you will decrease to 5 mg twice daily and follow up with PCP and follow instructions for as long as recommended by PCP. Also recommend referral to hematology will defer to PCP for further management Stand Alone Forms: Nursing Discharge Form Activity:: Activity as Tolerated Equipment/Supplies:: No Equipment Needed Diet:: As Tolerated Discharge Orders Discharge Orders: Discharge Order (Routine); Ordered 03/09/21 Ordered By: Petrona Villegas DS: Summary Time Spent with Patient providing and/or coordinating discharge services: Greater than 30 minutes (greater than 30 mins ) Status at Discharge Functional status at discharge: independent ambulation Overall status at discharge: patient is progressing back to baseline Mental Status: mental status grossly normal Speech and Movement: speech and movement normal Mood: congruent mood Affect: normal affect Exam Const General: cooperative and ill appearing (older than stated age) chronically Nutritional Appearance: average body habitus Orientation: alert, awake and oriented x3 HENMT Head: normal to inspection, normocephalic and atraumatic Mouth: oral mucosae normal Resp Effort & Inspection: normal respiratory effort Auscultation: clear to auscultation bilaterally Cardio Rate: regular rate Rhythm: regular rhythm Heart Sounds: no murmurs GI Inspection: normal to inspection Palpation: soft Auscultation: normal bowel sounds Skin General skin exam: no rashes or lesions noted Extrem Left lower extremity: edema and lower leg Psych Mental Status: mental status grossly normal Speech and Movement: speech and movement normal Mood: congruent mood Affect: normal affect DS: Data Vitals/I&O Vitals and I&O: Vital Signs Temperature 37 C 03/09/21 12:01 Temperature Source Tympanic 03/09/21 12:01 Pulse 74 03/09/21 12:01 Pulse Rhythm Regular 03/09/21 04:45 Respiratory Rate 17 03/09/21 12:01 Respiratory Effort Non-Labored 03/09/21 04:45 Respiratory Depth Normal 03/09/21 04:45 Respiratory Pattern Normal 03/09/21 04:45 Blood Pressure 133/86 03/09/21 12:01 Blood Pressure Position Sitting 03/08/21 09:21 Pulse Oximetry 91 L 03/09/21 12:01 Oxygen Delivery Method Room Air 03/09/21 12:01 Oxygen Flow Rate 0 03/09/21 12:01 Pain Level 0 03/09/21 12:01 Comment 03/09/21 11:30 Intake & Output 03/08/21 03/09/21 03/09/21 23:59 11:59 23:59 Intake Total 300 / 300 1500 / 1500 Balance 300 / 300 1500 / 1500 Weight 91 kg Intake: IV 60 / 60 Oral 240 / 240 1500 / 1500 Other: Urine Color Yellow Urine Appearance Clear Clear Urine Odor Normal Comment Patient uses bathroom independently. Per pt. report, void x1 in the toilet. Stool Size Small Stool Characteristics Soft Liquid Voiding Methods Toilet Toilet Urinal Data Completed and Pending Completed studies during hospitalization [Text1]: COMPARISON: No exams were available for comparison FINDINGS: This is an abnormal-positive study. There is extensive DVT extending from at least the common femoral vein down through the length of the ipsilateral femoral vein and into the calf veins including the peroneal veins and visualized proximal anterior tibial veins. The visualized posterior tibial veins appear patent. There is also thrombus within the proximal and mid portions of the ipsilateral greater saphenous vein. IMPRESSION: 1. Positive study with extensive DVT in the left lower extremity, as described above.. There is also extensive thrombosis in the ipsilateral greater saphenous vein. Exam(s) a CT:CT chest PE abd & pelvis w EXAM: CT CHEST PE ABD PELVIS W CLINICAL HISTORY: large leg dvt, with tachycardia and tachypnea. TECHNIQUE: Imaging Protocol: Axial CT angiography was performed with multi-slice acquisition and multi-planar and/or 3D reconstructions. CONTRAST MATERIAL: Intravenous: Omnipaque 350 Contrast volume:100 ml Oral: None COMPARISON: CT CT ABDOMEN PELVIS W from 06/27/2020 FINDINGS: CHEST: PULMONARY ARTERIES: There are no intra-arterial filling defects to suggest the presence of acute pulmonary emboli. LUNGS: There is no evidence of pulmonary infarction.There are emphysematous changes bilaterally. Mild subpleural infiltrate is noted in the posterior basal segment of the left lower lobe. No prominent nodules. There are no pleural effusions. MEDIASTINUM: There is no hilar nor mediastinal adenopathy. Visualized thyroid unremarkable. CARDIAC: Heart size is normal. There is no pericardial effusion. There is no significant shift of the interventricular septum.Caliber thoracic aorta is normal. No evidence of aortic dissection. OSSEOUS: No significant osseous lesions.. ABDOMEN: There is no ascites. LIVER: There are no focal hepatic lesions nor dilatation of intrahepatic ducts. GALLBLADDER/BILIARY: No obvious gallbladder pathology. CBD is not dilated. PANCREAS: No evidence of pancreatic mass nor dilatation of the pancreatic duct. SPLEEN: Spleen is not enlarged. There are no intrasplenic lesions. Splenic and portal veins are patent. ADRENALS: There are no significant adrenal masses. KIDNEYS:Multiple cysts in both kidneys. Largest cyst is in the right kidney and measures 3.5 by 0.9 cm. No calculi nor hydronephrosis. No solid renal masses. ABDOMINAL AORTA: Abdominal aorta is not enlarged. LYMPH NODES: There is no retroperitoneal or para-aortic adenopathy. ABDOMINAL WALL/GI: No evidence of significant anterior abdominal wall hernia. No bowel obstruction. PELVIS: There appears to be intraluminal thrombus in the left common femoral vein with intraluminal filling defect and surrounding streaking. Similar findings not seen on the opposite-right side. LYMPH NODES: There is no intrapelvic nor inguinal adenopathy. GI: No evidence of appendicitis.Extensive sigmoid diverticulosis but no obvious acute diverticulitis. URINARY BLADDER: No calculi nor masses evident REPRODUCTIVE: Age-appropriate OSSEOUS: No significant osseous lesions. IMPRESSION: 1. No evidence of acute pulmonary emboli nor pulmonary infarction. 2. Some mild infiltrate is noted in the left lung base. This requires follow-up. No pleural effusion 3. There is intraluminal filling defect consistent with DVT in the left lower extremity veins described above including the left common femoral vein. 4. Multiple benign renal cysts. No solid renal masses. 5. Extensive sigmoid diverticulosis. No obvious acute diverticulitis. No appendicitis. Sigmoid Exam(s) a US:US echocardiogram APPROVED REPORT EXAM: Comprehensive 2D, Doppler, and color-flow Echocardiogram Patient Location: In-Patient Psychiatry Teacher: Sona Lea RDCS (AE) Indications: DVT, Tachycardia, COPD Other Information Study Quality: Adequate Conclusion Normal left ventricular wall thickness and chamber size. Estimated ejection fraction is 55 to 60%. There are no segmental wall motion abnormalities Normal right ventricular size and systolic function Both atria are normal in size There is no significant valvular disease Mildly dilated ascending aorta measuring 3.56 cm Labs on day of discharge: Labs from last 24 hours 03/09/21 03/09/21 03/09/21 07:21 07:21 07:21 WBC 9.76 D RBC 5.70 Hgb 17.2 Hct 51.6 H MCV 90.5 MCH 30.2 MCHC 33.3 RDW 13.0 Plt Count 187 MPV 10.1 Immature Gran % 0.5 Neutrophils % 61.0 Lymphocytes % 22.5 Monocytes % 9.4 Eosinophils % 5.8 Basophils % 0.8 Nucleated RBC % 0 Absolute Neutrophils 5.95 Absolute Lymphocytes 2.20 Absolute Monocytes 0.92 H Absolute Eosinophils 0.57 Absolute Basophils 0.08 PT 10.7 INR 1.1 Sodium Potassium Chloride Carbon Dioxide Anion Gap BUN Creatinine Estimated GFR/1.73 m2 Glucose Calcium Magnesium Iron TIBC Transferrin % Sat Ferritin Troponin I C-Reactive Protein Vitamin B12 25-OH Vitamin D Total Pending Folate Procalcitonin SARS-CoV-2 (PCR) 03/09/21 03/09/21 03/08/21 07:21 07:21 15:28 WBC RBC Hgb Hct MCV MCH MCHC RDW Plt Count MPV Immature Gran % Neutrophils % Lymphocytes % Monocytes % Eosinophils % Basophils % Nucleated RBC % Absolute Neutrophils Absolute Lymphocytes Absolute Monocytes Absolute Eosinophils Absolute Basophils PT INR Sodium 137 Potassium 4.3 Chloride 103 Carbon Dioxide 21.9 Anion Gap 12.1 H BUN 28 H Creatinine 1.7 H Estimated GFR/1.73 m2 40.78 Glucose 95 Calcium 8.9 Magnesium 2.2 Iron 60 L TIBC 237 L Transferrin % Sat 25 Ferritin 217 Troponin I C-Reactive Protein 7.34 H Vitamin B12 663 25-OH Vitamin D Total Folate > 20.0 H Procalcitonin 0.1 SARS-CoV-2 (PCR) 03/08/21 03/08/21 15:28 12:08 WBC RBC Hgb Hct MCV MCH MCHC RDW Plt Count MPV Immature Gran % Neutrophils % Lymphocytes % Monocytes % Eosinophils % Basophils % Nucleated RBC % Absolute Neutrophils Absolute Lymphocytes Absolute Monocytes Absolute Eosinophils Absolute Basophils PT INR Sodium Potassium Chloride Carbon Dioxide Anion Gap BUN Creatinine Estimated GFR/1.73 m2 Glucose Calcium Magnesium Iron TIBC Transferrin % Sat Ferritin Troponin I < 0.05 C-Reactive Protein Vitamin B12 25-OH Vitamin D Total Folate Procalcitonin SARS-CoV-2 (PCR) Negative [facility] Medical History (Updated 03/09/21 @ 12:46 by Petrona Villegas NP) CKD (chronic kidney disease) COPD (chronic obstructive pulmonary disease) Depression Essential hypertension GERD (gastroesophageal reflux disease) etiology of chronic hoarseness Hyperlipidemia Renal insufficiency Tobacco use disorder Surgical History Cystoscopy 10/12/14 Hand surgery 04/2014 Replacement of total knee joint 04/10/17 RIGHT KNEE Family History Mother , 67 Diabetes Heart disease Myocardial infarction Parkinson disease Father , 89 Heart disease Myocardial infarction x 2 OA (osteoarthritis) Dialysis patient Son No problems noted. Family History Essential hypertension Heart disease Hyperlipidemia Mental disorder Sister No problems noted. Sister No problems noted. Sister No problems noted. Sister No problems noted. Brother , 63 No problems noted. Brother No problems noted. Son No problems noted. Social History Smoking/Tobacco Use Status: Current every day Tobacco Type: cigarettes Quit status: considering quitting Smoking risk assessment performed?: Yes Alcohol Intake: current Alcohol Intake frequency: 0-2 drinks per day Alcohol type: beer Drug use: Socially Substance use type: marijuana Caregiver/Support person: No Household members: none Housing: other Details: [place] Do you need help understanding health information?: Rarely Pets and animals: No Sexually active: Yes Do you think of yourself as: straight/heterosexual Current gender identity: male What is your relationship status?: How often do you talk on the phone with friends or family?: decline to answer How often do you get together with friends or relatives?: decline to answer How often do you attend hinduism or sikhism services?: decline to answer Do you belong to any clubs or organized social groups?: decline to answer Panel score (0-1 are the most socially isolated patients): 0 What type of physical activity do you participate in: decline to answer Duration: 30-45 minutes/day Frequency: decline to answer Mehnaz/Congregation: Orthodox Special mehnaz needs: No Seatbelt use: always Drive intox or ride w/intox 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
--- NOTE | 2021-03-09 15:57 | PDOC.CMDIS ---
- If Service Date Differs Date of service: 03/09/21 Time of Service: 15:58 LACE Index Scoring Tool - Questions: Length of Stay (in days): 1 Acuity (Admit via E.D.?): Yes E.D. Visits: 1 - Answers: Total Score: 5 Risk of Readmission: Low Risk Care Management Discharge Reason for Hospitalization: L Leg DVT Discharge Plan: Igor will be discharged home with no new services. He will follow up with his community providers and transport with family. . Patient/Family Education Needs: Review of discharge and follow up instructions including medications, activities and appointments. Discussion of Ask Me Three
[2021-03-12 05:05] LABS: Vitamin D 25 Total 21.5 ng/mL (30-100)
== END 2021-03-09 14:28 | disposition home or self-care (01) | DRG 301 ==
LOC: ER 09:25 → MS 13:29
PROVIDERS: Nurse Practitioner Acute Care; Admitting Provider Internal Medicine; Emergency Provider Physician Assistant; PCP Family Medicine; Visit Provider Internal Medicine
DX: I82.412 Acute embolism and thrombosis of left femoral vein (principal); I82.812 Embolism and thrombosis of superficial veins of left lower extremity; F17.210 Nicotine dependence, cigarettes, uncomplicated; N18.9 Chronic kidney disease, unspecified; J44.9 Chronic obstructive pulmonary disease, unspecified; I12.9 Hypertensive chronic kidney disease with stage 1 through stage 4 chronic kidney disease, or unspecified chronic kidney disease; M19.09 Primary osteoarthritis, other specified site; Z20.822 Contact with and (suspected) exposure to COVID-19
CPT/HCPCS: 36415; 71275; 74177; 80048; 80053; 82306; 84145; 87635; 93005; 96365; 96372; 99217; 99222; 99285; 82607; 82728; 82746; 83540; 83550; 83735; 83880; 84484; 85025; 85610; 85730; 86140; 93010; 93306; 93971; 99238; J0696; J1650

== ENCOUNTER 2021-06-07 02:27 | Outpatient (CLI) | payer MEDICAID, SELFPAY ==
--- NOTE | 2021-06-07 07:38 | DI.US_ITS ---
APPROVED REPORT EXAM: Comprehensive 2D, Doppler, and color-flow Echocardiogram Patient Location: Out-Patient Engineer Second Assistant: Sona Lea RDCS (AE) Indications: Abnormal EKG, Arrhythmia Other Information Study Quality: Adequate Conclusion Left Ventricle : The left ventricle is normal size. The left ventricular ejection fraction is within the normal range. There is normal left ventricular wall thickness. There is normal LV segmental wall motion. The left ventricular diastolic function is normal. LVEF is 60%. Right Ventricle : The right ventricle is normal size. The right ventricular systolic function is norm al. Atria : The left atrium size is normal. The right atrium size is normal. Mitral Valve : Mild mitral annular calcification. Trace to mild mitral regurgitation. No evidence of mitral valve stenosis. Tricuspid Valve : The tricuspid valve is normal in structure. Trace tricuspid regurgitation. Unable t o assess PA pressure. There is no tricuspid valve stenosis. Great Vessels : The aortic root is normal in size. The ascending aorta is mildly dilated. Aortic arch is not well visualized. IVC is normal in size and collapses >50% with inspiration. Please see remainder of study for further details Wall motion Left Ventricle The left ventricle is normal size. The left ventricular ejection fraction is within the normal range. There is normal left ventricular wall thickness. There is normal LV segmental wall motion. The left ventricular diastolic function is normal. There is no ventricular septal defect visualized. LVEF is 6 0%. Right Ventricle The right ventricle is normal size. The right ventricular systolic function is normal. Atria The left atrium size is normal. The right atrium size is normal. The interatrial septum is intact wit h no evidence for an atrial septal defect. Aortic Valve The aortic valve is normal in structure. Aortic valve is trileaflet. There is no aortic valvular sten osis. No aortic regurgitation is present. Mitral Valve Mild mitral annular calcification. No evidence of mitral valve stenosis. Trace to mild mitral regurgi tation. Tricuspid Valve The tricuspid valve is normal in structure. There is no tricuspid valve stenosis. Trace tricuspid reg urgitation. Unable to assess PA pressure. Pulmonic Valve The pulmonary valve is normal in structure. There is no pulmonic valvular stenosis. There is no pulmo thompson valvular regurgitation. Great Vessels The aortic root is normal in size. The ascending aorta is mildly dilated. Aortic arch is not well vis ualized. IVC is normal in size and collapses >50% with inspiration. Pericardium There is no pericardial effusion. 2D Dimensions IVSD d PLAX 1.11 cm M: 0.6-1.2 LV Vol A2C d MOD 96.5 mL LVPW d PLAX 1.15 cm M: 0.6 - 1.2 LV Vol A4C d MOD 117.2 mL LVID d PLAX 4.75 cm M: 4.2 - 5.8 LA vol/ BSA A2C s A-L 25.9 mL/m2 LVDs 3.35 cm M: 2.5 - 4.0 LA vol/ BSA A4C s A-L 16.7 mL/m2 Ao Root d 2.92 cm M: 3.1 - 3.7 LA Vol/ BSA Biplane s A-L 21.9 mL/m2 RA Area A4C 15.01 cm2 LA Area A4C s MOD 13.63 cm2 RA Vol/ BSA A4C s A-L 20.0 mL/m2 LA Area A2C s MOD 17.85 cm2 Ao Asc Diam d 3.60 cm M: 2.6 - 3.4 LV EF A4C MOD 58.1 % LV EF Teichholz 56.1 % LV EF A2C MOD 60.9 % LVEF (Jaeger's) 59.81 % M: 52 - 72 LV EF Biplane MOD 59.8 % LV Volume 80.37 mL M: 62 - 150 SV 65.00 mL LV Volume Index 38.63 mL/m2 M: 34 - 74 SV Index 31.14 mL/m2 LV Vol Biplane MOD 108.7 mL FS 29.25 % M-Mode TAPSE 2.12 cm (M/F) >1.7 LV Diastology MV E' medial 0.132 (>0.07 m/s) E/A Ratio 1.0 LV E/e MED 4.75 (<14) MV E Vmax 0.63 (0.4-1.3 m/s) MV E' lateral 0.106 (>0.1 m/s) MV A Vmax 0.60 (0.4-1.3 m/s) LV E/e LAT 5.90 (<14) MV E/A Ratio 0.97 MV E/E' medial 4.75 MV E/E' lateral 5.92 Aortic Valve LVOT Area 3.08 cm2 AoV Area Vmax 2.30 cm2 LVOT Vmax 0.93 m/s AoV Area/ BSA (Vmax) 1.10 cm2/m2 LVOT Mean Darrius. 0.59 m/s MAN Mean Darrius. 2.04 cm2 LVOT Peak Grad 3.5 mmHg MAN Mean Darrius. Index 0.98 cm2/m2 LVOT Mean Grad 1.7 mmHg LVOT VTI 0.196 m LVOT Diam s 1.95 cm AoV Vmax 1.25 m/s Velocity Ratio 0.74 AoV Mean Darrius. 0.90 m/s AoV Peak Grad 6.3 mmHg LVOT SV 60.32 mL AoV Mean Grad 3.6 mmHg AoV VTI 0.256 m AoV Area VTI 2.35 cm2 AoV Area/ BSA (VTI) 1.13 cm/m2 Mitral Valve MV DT 269 (160-240 msec) MR Vmax 4.82 m/s MV PHT 78 msec MR VTI 1.562 m MV Area PHT 2.82 cm2 MR Peak Grad 92.8 mmHg MV VTI 0.267 m MR Mean Grad 62.9 mmHg MV VTI Annulus 0.270 m MV Area VTI 2.28 (4.0-6.0 cm2) Pulmonary Valve PV Vmax 1.32 (0.5-1.5 m/s) RVOT Peak Gr. 1.84 mmHg PV Peak Grad 7.0 mmHg RVOT Mean Gr. 0.95 mmHg PV Mean Grad 3.1 mmHg RVOT VTI 0.136 m PV VTI 0.237 m RVOT Vmax 0.68 m/s
== END 2021-06-07 02:47 ==
PROVIDERS: PCP Nurse Practitioner Family; Visit Provider Student in an Organized Health Care Education/Training Program
DX: R94.31 Abnormal electrocardiogram [ECG] [EKG] (principal); I49.9 Cardiac arrhythmia, unspecified; I77.810 Thoracic aortic ectasia; I34.0 Nonrheumatic mitral (valve) insufficiency
CPT/HCPCS: 93306

== ENCOUNTER 2021-06-18 01:57 | Outpatient (CLI) | payer MEDICAID, SELFPAY ==
[2021-06-18 12:38] LABS: Calculated LDL 103 mg/dL (<100); Cholesterol 166 mg/dL (<200); HDL Cholesterol 52 mg/dL (40-60); Triglyceride 58 mg/dL (<150)
[2021-06-18 13:15] LABS: Hemoglobin A1C 5.6 % (<5.7)
[2021-06-18 21:48] LABS: PSA, Screening 1.2 ng/mL (0.0-4.5)
== END 2021-06-18 01:58 | disposition home or self-care (01) ==
LOC: LOS 01:57
PROVIDERS: PCP Nurse Practitioner Family; Visit Provider Nurse Practitioner Family
DX: Z13.220 Encounter for screening for lipoid disorders (principal); Z13.1 Encounter for screening for diabetes mellitus; N40.0 Benign prostatic hyperplasia without lower urinary tract symptoms; Z12.5 Encounter for screening for malignant neoplasm of prostate
CPT/HCPCS: 36415; 80061; 84153; 83036

== ENCOUNTER 2022-07-01 03:52 | Outpatient (CLI) | payer OTHER, MEDICAID, SELFPAY ==
[2022-07-01 12:58] LABS: ALT 24 U/L (16-63); AST 23 U/L (15-37); Albumin 3.8 g/dL (3.4-5.0); Alkaline Phosphatase 72 U/L (46-116); BUN 26 mg/dL (7-18); Bilirubin, Total 0.5 mg/dL (0.2-1.0); CREATININE 1.6 mg/dL (0.70-1.30); Calcium 8.9 mg/dL (8.5-10.1); Chloride 102 mmol/L (98-107); Glucose 101 mg/dL (74-106); Potassium 4.6 mmol/L (3.5-5.1); Sodium 138 mmol/L (136-145); Total Protein 7.5 g/dL (6.4-8.2)
== END 2022-07-01 03:53 | disposition home or self-care (01) ==
LOC: LOS 03:52
PROVIDERS: PCP Nurse Practitioner Family; Visit Provider Nurse Practitioner Family
DX: N18.9 Chronic kidney disease, unspecified (principal)
CPT/HCPCS: 36415; 80053

== ENCOUNTER 2023-09-02 01:37 | Outpatient (CLI) | payer OTHER, MEDICAID, SELFPAY ==
[2023-09-02 13:14] LABS: Anion Gap 9.8 mmol/L (3-11); BUN 29 mg/dL (7-18); CO2 25.2 mmol/L (21.0-32.0); CREATININE 1.9 mg/dL (0.70-1.30); Calcium 9.8 mg/dL (8.5-10.1); Calculated LDL 113 mg/dL (<100); Chloride 103 mmol/L (98-107); Cholesterol 196 mg/dL (<200); Estimated GFR 38.19 (mL/min/1.73m2); Glucose 116 mg/dL (74-106); HDL Cholesterol 58 mg/dL (40-60); Sodium 138 mmol/L (136-145); Triglyceride 128 mg/dL (<150)
== END 2023-09-02 01:38 | disposition home or self-care (01) ==
LOC: LOS 01:37
PROVIDERS: PCP Nurse Practitioner Family; Visit Provider Nurse Practitioner Family
DX: E78.5 Hyperlipidemia, unspecified (principal); I10 Essential (primary) hypertension
CPT/HCPCS: 36415; 80048; 80061

== ENCOUNTER 2024-08-18 16:26 | Outpatient (REF) | payer OTHER, MEDICAID, SELFPAY ==
[2024-08-18 21:16] LABS: ALT 18 U/L (16-63); AST 18 U/L (15-37); Albumin 4.2 g/dL (3.4-5.0); Alkaline Phosphatase 86 U/L (46-116); Anion Gap 8.8 mmol/L (3-11); BUN 29 mg/dL (7-18); CO2 27.2 mmol/L (21.0-32.0); CREATININE 1.8 mg/dL (0.70-1.30); Calcium 9.6 mg/dL (8.5-10.1); Calculated LDL 97 mg/dL (<100); Chloride 104 mmol/L (98-107); Cholesterol 195 mg/dL (<200); Estimated GFR 40.49 (mL/min/1.73m2); Glucose 108 mg/dL (74-106); HDL Cholesterol 58 mg/dL (40-60); Potassium 4.7 mmol/L (3.5-5.1); Sodium 140 mmol/L (136-145); Total Protein 7.6 g/dL (6.4-8.2); Triglyceride 202 mg/dL (<150)
[2024-08-19 21:20] LABS: PSA, Screening 2.5 ng/mL (<=4.5)
== END 2024-08-18 16:27 | disposition home or self-care (01) ==
LOC: LBN 16:26
PROVIDERS: PCP Nurse Practitioner Family; Visit Provider Nurse Practitioner Family
DX: I10 Essential (primary) hypertension (principal); Z13.220 Encounter for screening for lipoid disorders; Z12.5 Encounter for screening for malignant neoplasm of prostate; Z00.00 Encounter for general adult medical examination without abnormal findings; E78.5 Hyperlipidemia, unspecified; K21.9 Gastro-esophageal reflux disease without esophagitis; J44.9 Chronic obstructive pulmonary disease, unspecified
CPT/HCPCS: 80053; 80061; 84153

== ENCOUNTER 2025-09-27 01:22 | Outpatient (CLI) | payer MEDICARE, MEDICAID, SELFPAY ==
[2025-09-27 14:14] LABS: Anion Gap 10.3 mmol/L (3-11); BUN 27 mg/dL (7-18); CO2 25.7 mmol/L (21.0-32.0); Calcium 9.2 mg/dL (8.5-10.1); Chloride 102 mmol/L (98-107); Glucose 95 mg/dL (74-106); Potassium 4.6 mmol/L (3.5-5.1); Sodium 138 mmol/L (136-145)
== END 2025-09-27 01:23 | disposition home or self-care (01) ==
PROVIDERS: PCP Nurse Practitioner Family; Visit Provider Nurse Practitioner Family
DX: Z13.1 Encounter for screening for diabetes mellitus (principal)
CPT/HCPCS: 36415; 80048